=== PATIENT | male | born 1980 | race Caucasian/White ===

== ENCOUNTER 2024-03-06 06:15 | Emergency (ER) | payer BC, SELFPAY ==
[2024-03-06 06:18] VITALS: BP 132/81
[2024-03-06 06:33] VITALS: BMI 33.2
--- NOTE | 2024-03-06 06:46 | ED.GENMED ---
History of Present Illness
General
Chief Complaint: Fainting/Passed Out
Source: patient
Time Seen by Provider: 03/06/24 06:38
Travel History
Have you had any contact with someone who has COVID-19?: No
Do you have any symptoms of coronavirus? Fever > 100 degrees, chills, cough, shortness of breath, sore throat, loss of taste or smell, muscle aches, or headache?: No
History of Present Illness
History of Present Illness:
43-year-old male presents to the emergency room after finding himself on the floor in his bathroom. Patient had gotten up to urinate. He also was feeling bit nauseous. He next realizes that he is on the ground. He presumes he passed out. He did
have a slight area of tenderness on his forehead suggesting may have struck his head. Also the rug in the bathroom was pushed against the wall. Patient denies any chest pain. He denies any significant medical history and does not take any
prescription medications. He denies feeling short of breath but rather has a sensation that he needs to take a deep breath every so often which is not uncommon for him and situations that make him anxious.
Past History
Past History
ED Past Medical History: None
ED Past Surgical History: None
Social History
Tobacco: Non-smoker
Alcohol: Occasional
Drug: None
Personal:
Living: with family
Employment: Employed
Phy Exam
Physical Exam
Physical Exam:
General: Awake, Alert, Oriented X3. No acute distress.
Vitals: unremarkable
Head: Atraumatic
Eyes: Pupils equal, EOMI
Throat: Airway intact, no exudates
Neck: Trachea midline
Lungs: Clear and equal b/l
Heart: Regular rate, no murmurs
Abd: Soft, Nontender, No pulsatile mass
Neuro: Cranial nerves intact, muscle strength equal bilaterally
Skin: Warm, dry, no rash
Extremities: pulses equal b/l, no edema
Course
Orders/Labs/Results
Orders:
Orders
03/06/24 06:24
Electrocardiogram (*1) Urgent
Reason for Study: Syncope
EKG- Treatment ONCE
03/06/24 06:46
Cardiac Monitoring- Treatment ONCE
03/06/24 07:01
Basic Metabolic Panel Urgent
Complete Blood Count/With Diff Urgent
Abnormal Lab Results
03/06/24
07:01
MPV 10.8 H fL
(7.4-10.4)
Immature Gran % 0.6 H %
(0-0.5)
Glucose 110 H mg/dl
(70-99)
03/06/24 07:01
03/06/24 07:01
Vital Signs
Initial and Last Documented VS:
Initial Vital Signs
Temp Pulse Resp BP Pulse Ox
98.1 F 70 18 132/81 99
03/06/24 06:18 03/06/24 06:18 03/06/24 06:18 03/06/24 06:18 03/06/24 06:18
Last Documented Vital Signs
Temp Pulse Resp BP Pulse Ox
98.1 F 61 14 107/80 98
03/06/24 06:18 03/06/24 07:45 03/06/24 07:45 03/06/24 08:00 03/06/24 07:45
MDM/Problems Addressed
Differential Diagnosis Includes:
Vasovagal syncope, dysrhythmia, dehydration, anemia
MDM/Problems Addressed:
Patient presents after passing out at home. Workup here is benign. He has normal sinus rhythm on his EKG. Cardiac monitoring shows normal sinus rhythm. Context of the event is suggestive of a vasovagal event. Patient stable for discharge home.
*Pulse Oximetry
Patient hypoxic: no
*EKG
Interpreted by ED Provider?: Yes
Interpretation: normal
Heart Rate: 59
Rate: bradycardiac
Rhythm: sinus
[place]: normal axis
Interval: normal interval
QRS Pattern: normal QRS
Ischemia: no ischemia
*Computing Services Director Interpretation
Rate: bradycardiac
Heart Rate: 59
Rhythm: sinus
*Critical Care Note
Total Time (30-74mins, 75-104mins- exclusive of procedures): Not Applicable
ED Attending Note
-
Portions of this chart may have been created with voice recognition software.� Occasional wrong word or��sound alike� substitutions may have occurred due to the inherent limitations of voice recognition software.
Discharge Plan
Departure
Patient Disposition: Home (Routine Discharge)
Date of Disposition: 03/06/24
Time of Disposition: 07:53
Patient with high blood pressure during this ER visit?: No
Condition: Good
Discharge Problem:
Syncope
Instructions: Syncope (Fainting) (DC)
Prescriptions:
No Action
prednisone 10 mg Tablet
See Rx Instructions .ROUTE .COMPLEX Qty: 30 0RF
Rx Instructions:
Take By Mouth:
40 mg daily x3 days, 30 mg daily x3 days,
20 mg daily x3 days, 10 mg daily x3 days.
Referrals:
Arvin Armenta MD [Family Provider] -
Interventions
Interventions:
*Risk Screen - Suicide Last Done: 03/06/24 06:33
*General Assessment Last Done: 03/06/24 06:33
*Neglect/Abuse Screening Last Done: 03/06/24 06:33
*Nursing Disposition Last Done: 03/06/24 08:31
ED- Cardiac Assessment Last Done: 03/06/24 06:33
ED- Neurological Assessment Last Done: 03/06/24 06:33
Discharge Date and Time
Discharge Date/Time: 03/06/24 08:31
Print Language: CHINESE
[2024-03-06 07:07] VITALS: BP 110/80
[2024-03-06 07:18] LABS: % Basophils 0.8 % (0-2); % Immature Granulocytes 0.6 % (0-0.5); % Lymphocytes 24.3 % (20.5-51.1); % Monocytes 7.5 % (1.7-9.3); % Neutrophils 61.8 % (42.2-75.2); Absolute Basophils 0.1 10^3/uL (0-0.2); Absolute Eosinophils 0.3 10^3/uL (0-0.7); Absolute Lymphocytes 1.5 10^3/uL (1.2-3.4); Absolute Monocytes 0.5 10^3/uL (0.1-0.6); Absolute Neutrophils 3.9 10^3/uL (1.4-6.5); Hematocrit 42.5 % (39.0-52.0); Hemoglobin 15.3 g/dL (13.0-18.0); Mean Corpuscular Hgb 29.9 pg (27.0-31.0); Mean Corpuscular Volume 83.2 fL (80.0-94.0); Mean Platelet Volume 10.8 fL (7.4-10.4); Nucleated Red Blood Cells % 0 % (-); Platelet Count 198 10^3/uL (130-400); Red Blood Cell Count 5.11 10^6/uL (4.70-6.10); Red Cell Dist. Width 12.6 % (11.5-14.5); White Blood Cell Count 6.3 10^3/uL (4.8-10.8)
[2024-03-06 07:36] LABS: Blood Urea Nitrogen 15 mg/dl (9-20); Calcium 9.6 mg/dl (8.4-10.2); Carbon Dioxide 25 mmol/L (22-30); Chloride 106 mmol/L (98-107); Estimated Creatinine Clearance > 125 ml/min; Glucose 110 mg/dl (70-99); Potassium 4.5 mmol/L (3.5-5.1); Sodium 140 mmol/L (135-145); eGFR > 60.00
[2024-03-06 08:00] VITALS: BP 107/80
== END 2024-03-06 08:31 | disposition home or self-care (01) ==
LOC: EMR 06:15
PROVIDERS: EMERGENCY PHYSICIAN Emergency Medicine; FAMILY PHYSICIAN Family Medicine
DX: R55 Syncope and collapse (principal)
CPT/HCPCS: 99283; 80048; 85025; 93005